=== PATIENT | female | born 1995 | race Two or more races ===

== ENCOUNTER 2021-05-16 21:18 | Emergency (ER) | payer MEDICAID, OTHER ==
[~2021-05-16] VITALS: Ht 175.3 cm; Wt 90.7 kg
[2021-05-17] VITALS: BP 117/75
== END 2021-05-17 00:10 | disposition home or self-care (01) ==
LOC: EDBD 21:18 → ER 21:21
DX: G43.909 Migraine, unspecified, not intractable, without status migrainosus (principal); R41.82 Altered mental status, unspecified; Z90.49 Acquired absence of other specified parts of digestive tract
CPT/HCPCS: 70450; 70480